=== PATIENT | male | born 2000 | race Caucasian/White ===

== ENCOUNTER 2023-04-14 15:34 | Emergency (ER) | payer OTHER ==
[~2023-04-14] VITALS: Ht 175.3 cm; Wt 80.4 kg
[2023-04-14 15:36] VITALS: TEMP 97.9
[2023-04-14] MEDS ORDERED: GABA-284 PO (15:49)
[2023-04-14] MEDS ORDERED: SERT-141 PO (15:49)
[2023-04-14] MEDS ORDERED: CETIRIZINE (ZyrTEC) 10 MG TAB PO ONE (19:30)
[2023-04-14] MEDS ORDERED: predniSONE 20 MG TAB PO ONE (19:30)
[2023-04-14] MEDS ORDERED: CETI10CH PO (19:33)
[2023-04-14] MEDS ORDERED: PRED20TA PO (19:33)
[2023-04-14 19:38] VITALS: BP 124/58; O2SAT 99
== END 2023-04-14 19:42 | disposition home or self-care (01) ==
LOC: M ED 15:34
DX: T78.40XA Allergy, unspecified, initial encounter (principal); S80.861A Insect bite (nonvenomous), right lower leg, initial encounter; S80.862A Insect bite (nonvenomous), left lower leg, initial encounter; Z79.891 Long term (current) use of opiate analgesic; Z79.52 Long term (current) use of systemic steroids; Z79.899 Other long term (current) drug therapy
CPT/HCPCS: 99283; J7512